=== PATIENT | male | born 1930 | race Caucasian/White ===

== ENCOUNTER 2021-03-07 18:13 | Inpatient (IN) | payer MEDICARE ==
[2021-03-07] MEDS ORDERED: Acetaminophen/Codeine 30-300mg Tablet PO PRN (20:43)
[2021-03-07] MEDS ORDERED: Acetaminophen 325 MG TAB PO PRN (20:44)
[2021-03-07] MEDS ORDERED: Scopolamine 1.5 mg/72 hour Patch TD SCH (21:00)
[2021-03-07] MEDS: Melatonin 3 MG TAB PO PRN (21:13)
[2021-03-07] MEDS: Senokot S 8.6-50 MG TAB PO SCH (21:13)
[2021-03-08] MEDS: Levothyroxine Sodium 125 MCG TAB PO SCH (05:39)
[2021-03-08 06:55] LABS: Anion Gap 13 mmol/L (10-20); BUN (Urea Nitrogen) 17 mg/dL (8.4-25.7); Calc. Creatinine Clearance 54 mL/min (70-130); Calcium 8.5 mg/dL (7.8-10.44); Carbon Dioxide 24 mmol/L (23-31); Chloride 105 mmol/L (98-107); Glucose 88 mg/dL (83-110); Potassium 4.7 mmol/L (3.5-5.1); Sodium 137 mmol/L (136-145)
[2021-03-08 07:14] LABS: #Basophils 0.1 thou/uL (0.0-0.2); #Eosinphils 0.2 thou/uL (0.0-0.7); #Lymphocytes 0.6 thou/uL (1.20-3.40); #Monocytes 0.5 thou/uL (0.11-0.59); #Neutrophils 5.4 thou/uL (1.40-6.50); %Basophils 1.2 % (0.0-1.0); %Eosinophils 2.3 % (0.0-10.0); %Lymphocytes 9.5 % (21.0-51.0); %Monocytes 6.8 % (0.0-10.0); %Neutrophils 80.2 % (42.0-75.0); Hemoglobin 8.8 g/dL (14.0-18.0); Mean Corpuscular HGB CONC 32.5 g/dL (32.0-36.0); Mean Corpuscular Hemoglobin 31.5 pg (27.0-31.0); Mean Platelet Volume 5.9 fL (7.4-10.4); Platelet Count 162 thou/uL (130-400); RBC Distribution Width 18.5 % (11.5-14.5); Red Blood Cell (RBC) Count 2.79 mill/uL (4.70-6.10); White Blood Cell (WBC) Count 6.7 thou/uL (4.8-10.8)
[2021-03-08] MEDS: Polyethylene Glycol 3350 17 GM Packet PO SCH (07:51)
[2021-03-08] MEDS: Multivitamin W/ Minerals 1 TAB PO SCH (07:52)
[2021-03-08] MEDS: Ascorbic Acid 500 mg Chewable Tablet PO SCH ×2 (07:52→17:22)
[2021-03-08] MEDS: Gabapentin 100 MG CAP PO SCH (07:52)
[2021-03-08] MEDS: Dutasteride 0.5 MG CAP PO SCH (07:52)
[2021-03-08] MEDS: Tamsulosin HCl 0.4 MG CAP PO SCH (07:52)
[2021-03-08] MEDS: Ferrous Sulfate 325 MG TAB PO SCH ×2 (07:52→17:22)
[2021-03-08] MEDS: Senokot S 8.6-50 MG TAB PO SCH ×2 (07:53→20:47)
[2021-03-08] MEDS: Scopolamine 1.5 mg/72 hour Patch TD SCH (10:33)
[2021-03-08] MEDS ORDERED: Acetaminophen/Codeine 30-300mg Tablet PO PRN (13:28)
[2021-03-09] MEDS: Levothyroxine Sodium 125 MCG TAB PO SCH (06:06)
[2021-03-09] MEDS: Dutasteride 0.5 MG CAP PO SCH (07:49)
[2021-03-09] MEDS: Polyethylene Glycol 3350 17 GM Packet PO SCH (07:49)
[2021-03-09] MEDS: Ferrous Sulfate 325 MG TAB PO SCH ×2 (07:49→17:29)
[2021-03-09] MEDS: Ascorbic Acid 500 mg Chewable Tablet PO SCH ×2 (07:50→17:30)
[2021-03-09] MEDS: Multivitamin W/ Minerals 1 TAB PO SCH (07:50)
[2021-03-09] MEDS: Gabapentin 100 MG CAP PO SCH (07:50)
[2021-03-09] MEDS: Senokot S 8.6-50 MG TAB PO SCH ×2 (07:50→20:51)
[2021-03-09] MEDS: Tamsulosin HCl 0.4 MG CAP PO SCH (07:50)
[2021-03-09] MEDS ORDERED: TESTOSTERONE 30 MG/1.5 ML TOP SCH (09:00)
[2021-03-09] MEDS: guaiFENesin 100 MG/5 ML UDCUP PO PRN (22:02)
[2021-03-10] MEDS: Levothyroxine Sodium 125 MCG TAB PO SCH (05:59)
[2021-03-10] MEDS: Polyethylene Glycol 3350 17 GM Packet PO SCH (08:12)
[2021-03-10] MEDS: Multivitamin W/ Minerals 1 TAB PO SCH (08:13)
[2021-03-10] MEDS: Dutasteride 0.5 MG CAP PO SCH (08:13)
[2021-03-10] MEDS: Gabapentin 100 MG CAP PO SCH (08:13)
[2021-03-10] MEDS: Senokot S 8.6-50 MG TAB PO SCH ×2 (08:13→21:13)
[2021-03-10] MEDS: Tamsulosin HCl 0.4 MG CAP PO SCH (08:13)
[2021-03-10] MEDS: Ferrous Sulfate 325 MG TAB PO SCH ×2 (08:14→17:45)
[2021-03-10] MEDS: Ascorbic Acid 500 mg Chewable Tablet PO SCH ×2 (08:14→17:45)
[2021-03-10] MEDS: Melatonin 3 MG TAB PO PRN (21:13)
[2021-03-10] MEDS: guaiFENesin 100 MG/5 ML UDCUP PO PRN (21:16)
[2021-03-11] MEDS: Levothyroxine Sodium 125 MCG TAB PO SCH (06:09)
[2021-03-11] MEDS: Polyethylene Glycol 3350 17 GM Packet PO SCH (08:05)
[2021-03-11] MEDS: Ferrous Sulfate 325 MG TAB PO SCH ×2 (08:39→17:17)
[2021-03-11] MEDS: Tamsulosin HCl 0.4 MG CAP PO SCH (08:39)
[2021-03-11] MEDS: Ascorbic Acid 500 mg Chewable Tablet PO SCH ×2 (08:39→17:18)
[2021-03-11] MEDS: Dutasteride 0.5 MG CAP PO SCH (08:39)
[2021-03-11] MEDS: Gabapentin 100 MG CAP PO SCH (08:39)
[2021-03-11] MEDS: Multivitamin W/ Minerals 1 TAB PO SCH (08:39)
[2021-03-11] MEDS: Senokot S 8.6-50 MG TAB PO SCH ×2 (09:19→20:56)
[2021-03-11] MEDS: Scopolamine 1.5 mg/72 hour Patch TD SCH (12:00)
[2021-03-11] MEDS: Melatonin 3 MG TAB PO PRN (20:56)
[2021-03-11] MEDS: guaiFENesin 100 MG/5 ML UDCUP PO PRN (20:59)
[2021-03-12] MEDS: Levothyroxine Sodium 125 MCG TAB PO SCH (06:12)
[2021-03-12] MEDS: Gabapentin 100 MG CAP PO SCH (07:42)
[2021-03-12] MEDS: Multivitamin W/ Minerals 1 TAB PO SCH (07:43)
[2021-03-12] MEDS: Ascorbic Acid 500 mg Chewable Tablet PO SCH ×2 (07:43→17:24)
[2021-03-12] MEDS: Senokot S 8.6-50 MG TAB PO SCH ×2 (07:43→20:53)
[2021-03-12] MEDS: Ferrous Sulfate 325 MG TAB PO SCH ×2 (07:43→17:24)
[2021-03-12] MEDS: Dutasteride 0.5 MG CAP PO SCH (07:43)
[2021-03-12] MEDS: Polyethylene Glycol 3350 17 GM Packet PO SCH (07:44)
[2021-03-12] MEDS: Tamsulosin HCl 0.4 MG CAP PO SCH (07:44)
[2021-03-12 11:57] LABS: SARS-CoV-2 PCR by NAA Not Detected (NotDetected)
[2021-03-12] MEDS: guaiFENesin 100 MG/5 ML UDCUP PO PRN (20:53)
[2021-03-12] MEDS: Melatonin 3 MG TAB PO PRN (20:53)
[2021-03-13] MEDS: Levothyroxine Sodium 125 MCG TAB PO SCH (06:14)
[2021-03-13] MEDS: Gabapentin 100 MG CAP PO SCH (07:31)
[2021-03-13] MEDS: Ascorbic Acid 500 mg Chewable Tablet PO SCH ×2 (07:31→16:31)
[2021-03-13] MEDS: Tamsulosin HCl 0.4 MG CAP PO SCH (07:31)
[2021-03-13] MEDS: Senokot S 8.6-50 MG TAB PO SCH ×2 (07:31→20:51)
[2021-03-13] MEDS: Polyethylene Glycol 3350 17 GM Packet PO SCH (07:31)
[2021-03-13] MEDS: Dutasteride 0.5 MG CAP PO SCH (07:31)
[2021-03-13] MEDS: Ferrous Sulfate 325 MG TAB PO SCH ×2 (07:32→16:30)
[2021-03-13] MEDS: Multivitamin W/ Minerals 1 TAB PO SCH (07:32)
[2021-03-13] MEDS: Melatonin 3 MG TAB PO PRN (20:51)
[2021-03-13] MEDS: guaiFENesin 100 MG/5 ML UDCUP PO PRN (20:52)
[2021-03-14] MEDS: Levothyroxine Sodium 125 MCG TAB PO SCH (05:57)
[2021-03-14] MEDS: Ferrous Sulfate 325 MG TAB PO SCH ×2 (07:44→17:18)
[2021-03-14] MEDS: Polyethylene Glycol 3350 17 GM Packet PO SCH (07:44)
[2021-03-14] MEDS: Gabapentin 100 MG CAP PO SCH (07:44)
[2021-03-14] MEDS: Senokot S 8.6-50 MG TAB PO SCH ×2 (07:44→21:01)
[2021-03-14] MEDS: Multivitamin W/ Minerals 1 TAB PO SCH (07:45)
[2021-03-14] MEDS: Ascorbic Acid 500 mg Chewable Tablet PO SCH ×2 (07:45→17:18)
[2021-03-14] MEDS: Tamsulosin HCl 0.4 MG CAP PO SCH (07:45)
[2021-03-14] MEDS: Dutasteride 0.5 MG CAP PO SCH (07:45)
[2021-03-14] MEDS: Scopolamine 1.5 mg/72 hour Patch TD SCH (11:12)
[2021-03-14] MEDS: Melatonin 3 MG TAB PO PRN (21:01)
[2021-03-15] MEDS: Levothyroxine Sodium 125 MCG TAB PO SCH (05:37)
[2021-03-15] MEDS: Polyethylene Glycol 3350 17 GM Packet PO SCH (08:15)
[2021-03-15] MEDS: Ascorbic Acid 500 mg Chewable Tablet PO SCH ×2 (08:16→17:41)
[2021-03-15] MEDS: Senokot S 8.6-50 MG TAB PO SCH ×2 (08:16→20:58)
[2021-03-15] MEDS: Dutasteride 0.5 MG CAP PO SCH (08:16)
[2021-03-15] MEDS: Gabapentin 100 MG CAP PO SCH (08:16)
[2021-03-15] MEDS: Multivitamin W/ Minerals 1 TAB PO SCH (08:16)
[2021-03-15] MEDS: Ferrous Sulfate 325 MG TAB PO SCH ×2 (08:17→17:41)
[2021-03-15] MEDS: Tamsulosin HCl 0.4 MG CAP PO SCH (08:17)
[2021-03-15] MEDS: Melatonin 3 MG TAB PO PRN (20:57)
[2021-03-16] MEDS: Levothyroxine Sodium 125 MCG TAB PO SCH (05:27)
[2021-03-16 06:49] LABS: #Basophils 0.1 thou/uL (0.0-0.2); #Eosinphils 0.2 thou/uL (0.0-0.7); #Lymphocytes 0.9 thou/uL (1.20-3.40); #Monocytes 0.5 thou/uL (0.11-0.59); %Basophils 1.5 % (0.0-1.0); %Eosinophils 2.3 % (0.0-10.0); %Lymphocytes 13.1 % (21.0-51.0); %Monocytes 7.7 % (0.0-10.0); %Neutrophils 75.4 % (42.0-75.0); Hemoglobin 9.5 g/dL (14.0-18.0); Mean Corpuscular Hemoglobin 31.2 pg (27.0-31.0); Mean Corpuscular Volume 97.5 fL (78.0-98.0); Platelet Count 176 thou/uL (130-400); RBC Distribution Width 17.9 % (11.5-14.5); Red Blood Cell (RBC) Count 3.03 mill/uL (4.70-6.10); White Blood Cell (WBC) Count 6.7 thou/uL (4.8-10.8)
[2021-03-16 06:53] LABS: Anion Gap 11 mmol/L (10-20); BUN (Urea Nitrogen) 30 mg/dL (8.4-25.7); Calc. Creatinine Clearance 61 mL/min (70-130); Calcium 8.7 mg/dL (7.8-10.44); Carbon Dioxide 24 mmol/L (23-31); Chloride 105 mmol/L (98-107); Glucose 91 mg/dL (83-110); Potassium 4.4 mmol/L (3.5-5.1); Sodium 136 mmol/L (136-145)
[2021-03-16] MEDS: Ascorbic Acid 500 mg Chewable Tablet PO SCH ×2 (08:18→17:20)
[2021-03-16] MEDS: Polyethylene Glycol 3350 17 GM Packet PO SCH (08:18)
[2021-03-16] MEDS: Senokot S 8.6-50 MG TAB PO SCH ×2 (08:18→20:57)
[2021-03-16] MEDS: Ferrous Sulfate 325 MG TAB PO SCH ×2 (08:18→17:20)
[2021-03-16] MEDS: Multivitamin W/ Minerals 1 TAB PO SCH (08:19)
[2021-03-16] MEDS: Gabapentin 100 MG CAP PO SCH (08:19)
[2021-03-16] MEDS: Tamsulosin HCl 0.4 MG CAP PO SCH (08:19)
[2021-03-16] MEDS: Dutasteride 0.5 MG CAP PO SCH (08:21)
[2021-03-16] MEDS: Melatonin 3 MG TAB PO PRN (20:57)
[2021-03-17] MEDS: Levothyroxine Sodium 125 MCG TAB PO SCH (06:18)
[2021-03-17] MEDS: Dutasteride 0.5 MG CAP PO SCH (08:17)
[2021-03-17] MEDS: Ascorbic Acid 500 mg Chewable Tablet PO SCH ×2 (08:17→17:58)
[2021-03-17] MEDS: Multivitamin W/ Minerals 1 TAB PO SCH (08:18)
[2021-03-17] MEDS: Gabapentin 100 MG CAP PO SCH (08:18)
[2021-03-17] MEDS: Senokot S 8.6-50 MG TAB PO SCH ×2 (08:18→20:51)
[2021-03-17] MEDS: Tamsulosin HCl 0.4 MG CAP PO SCH (08:19)
[2021-03-17] MEDS: Ferrous Sulfate 325 MG TAB PO SCH ×2 (08:19→17:58)
[2021-03-17] MEDS: Polyethylene Glycol 3350 17 GM Packet PO SCH (08:19)
[2021-03-17] MEDS: Scopolamine 1.5 mg/72 hour Patch TD SCH (10:54)
[2021-03-17] MEDS: Melatonin 3 MG TAB PO PRN (20:47)
[2021-03-18] MEDS: Levothyroxine Sodium 125 MCG TAB PO SCH (05:42)
[2021-03-18] MEDS: Polyethylene Glycol 3350 17 GM Packet PO SCH (07:38)
[2021-03-18] MEDS: Senokot S 8.6-50 MG TAB PO SCH ×2 (07:38→20:45)
[2021-03-18] MEDS: Tamsulosin HCl 0.4 MG CAP PO SCH (07:39)
[2021-03-18] MEDS: Multivitamin W/ Minerals 1 TAB PO SCH (07:39)
[2021-03-18] MEDS: Gabapentin 100 MG CAP PO SCH (07:39)
[2021-03-18] MEDS: Ferrous Sulfate 325 MG TAB PO SCH ×2 (07:39→17:16)
[2021-03-18] MEDS: Ascorbic Acid 500 mg Chewable Tablet PO SCH ×2 (07:39→17:16)
[2021-03-18] MEDS: Dutasteride 0.5 MG CAP PO SCH (07:40)
[2021-03-18] MEDS: Melatonin 3 MG TAB PO PRN (20:45)
[2021-03-19] MEDS: Levothyroxine Sodium 125 MCG TAB PO SCH (05:32)
[2021-03-19] MEDS: Tamsulosin HCl 0.4 MG CAP PO SCH (07:50)
[2021-03-19] MEDS: Gabapentin 100 MG CAP PO SCH (07:50)
[2021-03-19] MEDS: Ascorbic Acid 500 mg Chewable Tablet PO SCH ×2 (07:50→18:16)
[2021-03-19] MEDS: Senokot S 8.6-50 MG TAB PO SCH ×2 (07:50→21:03)
[2021-03-19] MEDS: Polyethylene Glycol 3350 17 GM Packet PO SCH (07:50)
[2021-03-19] MEDS: Dutasteride 0.5 MG CAP PO SCH (07:50)
[2021-03-19] MEDS: Ferrous Sulfate 325 MG TAB PO SCH ×2 (07:50→18:16)
[2021-03-19] MEDS: Multivitamin W/ Minerals 1 TAB PO SCH (07:50)
[2021-03-19 11:44] VITALS: BMI 21.8
[2021-03-19] MEDS: Melatonin 3 MG TAB PO PRN (21:04)
[2021-03-20 01:29] LABS: SARS-CoV-2 PCR by NAA Not Detected (NotDetected)
[2021-03-20] MEDS: Levothyroxine Sodium 125 MCG TAB PO SCH (05:29)
[2021-03-20] MEDS: Polyethylene Glycol 3350 17 GM Packet PO SCH (07:53)
[2021-03-20] MEDS: Senokot S 8.6-50 MG TAB PO SCH ×2 (07:54→20:19)
[2021-03-20] MEDS: Multivitamin W/ Minerals 1 TAB PO SCH (07:55)
[2021-03-20] MEDS: Ascorbic Acid 500 mg Chewable Tablet PO SCH ×2 (07:55→17:19)
[2021-03-20] MEDS: Ferrous Sulfate 325 MG TAB PO SCH ×2 (07:55→17:19)
[2021-03-20] MEDS: Gabapentin 100 MG CAP PO SCH (07:55)
[2021-03-20] MEDS: Tamsulosin HCl 0.4 MG CAP PO SCH (07:57)
[2021-03-20] MEDS: Dutasteride 0.5 MG CAP PO SCH (07:58)
[2021-03-20] MEDS: Scopolamine 1.5 mg/72 hour Patch TD SCH (13:42)
[2021-03-20] MEDS: Melatonin 3 MG TAB PO PRN (20:19)
[2021-03-21] MEDS: Levothyroxine Sodium 125 MCG TAB PO SCH (05:38)
[2021-03-21] MEDS: Polyethylene Glycol 3350 17 GM Packet PO SCH (07:38)
[2021-03-21] MEDS: Ferrous Sulfate 325 MG TAB PO SCH ×2 (08:06→16:30)
[2021-03-21] MEDS: Ascorbic Acid 500 mg Chewable Tablet PO SCH ×2 (08:06→16:30)
[2021-03-21] MEDS: Dutasteride 0.5 MG CAP PO SCH (08:06)
[2021-03-21] MEDS: Senokot S 8.6-50 MG TAB PO SCH ×2 (08:07→20:03)
[2021-03-21] MEDS: Tamsulosin HCl 0.4 MG CAP PO SCH (08:07)
[2021-03-21] MEDS: Gabapentin 100 MG CAP PO SCH (08:07)
[2021-03-21] MEDS: Multivitamin W/ Minerals 1 TAB PO SCH (08:07)
[2021-03-21] MEDS: Melatonin 3 MG TAB PO PRN (20:03)
[2021-03-22] MEDS: Levothyroxine Sodium 125 MCG TAB PO SCH (05:47)
[2021-03-22] MEDS: Polyethylene Glycol 3350 17 GM Packet PO SCH (07:36)
[2021-03-22 07:50] VITALS: BP 129/73; TEMP 97.6
[2021-03-22] MEDS: Gabapentin 100 MG CAP PO SCH (08:32)
[2021-03-22] MEDS: Dutasteride 0.5 MG CAP PO SCH (08:32)
[2021-03-22] MEDS: Senokot S 8.6-50 MG TAB PO SCH (08:34)
[2021-03-22] MEDS: Ascorbic Acid 500 mg Chewable Tablet PO SCH (08:34)
[2021-03-22] MEDS: Tamsulosin HCl 0.4 MG CAP PO SCH (08:35)
[2021-03-22] MEDS: Multivitamin W/ Minerals 1 TAB PO SCH (08:35)
[2021-03-22] MEDS: Ferrous Sulfate 325 MG TAB PO SCH (08:35)
== END 2021-03-22 16:15 | disposition home health service (06) | DRG 948 ==
LOC: NAV ACUTE 18:32
PROVIDERS: ADMIT Family Medicine; ATTEND Family Medicine
DX: R53.81 Other malaise (principal); C78.89 Secondary malignant neoplasm of other digestive organs; E03.9 Hypothyroidism, unspecified; N40.0 Benign prostatic hyperplasia without lower urinary tract symptoms; E78.5 Hyperlipidemia, unspecified; I10 Essential (primary) hypertension; Z66 Do not resuscitate; M81.0 Age-related osteoporosis without current pathological fracture; J44.9 Chronic obstructive pulmonary disease, unspecified; F41.9 Anxiety disorder, unspecified; Z96.652 Presence of left artificial knee joint; Z96.641 Presence of right artificial hip joint; M19.90 Unspecified osteoarthritis, unspecified site; Z20.822 Contact with and (suspected) exposure to COVID-19; Z85.118 Personal history of other malignant neoplasm of bronchus and lung
CPT/HCPCS: 36415; 80048; 85025; U0003; U0005